=== PATIENT | female | born 1990 | race Caucasian/White ===

== ENCOUNTER 2017-11-24 17:37 | Emergency (ER) | payer MEDICAID, OTHER ==
[~2017-11-24] VITALS: Ht 165.1 cm; Wt 52.6 kg
[~2017-11-24 17:37] MED LIST: NAPR550T PO; NITR100C3 PO; ORPH100T PO; PHEN100T26 PO
--- OUTSIDE RECORDS SUMMARY | 2017-11-24 18:02 | XMS REPORT | Continuity of Care Document ---
Author Author [facility] Organization [facility] Address Unknown Phone Unavailable Allergies There is no data. Medications There is no data. Problems There is no data. Procedures There is no data. Results There is no data. Encounters ACCT No. Visit Date/Time Discharge Status Pt. Type Provider Facility Loc./Unit Complaint [id number] 08/02/2013 19:48:00 08/02/2013 20:47:00 [facility] Emergency [id number] 02/26/2013 09:44:00 02/26/2013 12:43:00 [facility] Emergency
[2017-11-24] MEDS ORDERED: OSLT75C PO (18:34)
[2017-11-24 18:38] VITALS: BP 111/71
--- NOTE | 2017-11-24 18:39 | ED Cough/URI ---
General Chief Complaint: Cough/Cold/Flu Symptoms Stated Complaint: FLU SYMPTOMS Nursing Triage Note: Pt c/o cough and headache since Friday (11/22). Pt also reports chills and body aches. Source: patient Exam Limitations: no limitations History of Present Illness Date Seen by Provider: Nov 24, 2017 Time Seen by Provider: 18:38 Initial Comments nonproductive cough, headache, fevers, chills, body aches x2 days. Timing/Duration: yesterday, getting worse Severity/Quality: dry cough Associated Symptoms: cough, fever/chills Allergies and Home Medications Allergies Coded Allergies: No Known Allergies (Unverified Allergy, Mild, 10/18/09) Home Medications Nitrofurantoin/Nitrofuran Mac 100 Mg Capsule, 100 MG PO BID for 5 Days Prescribed by: MANISH WINCHESTER on 08/02/132034 Oseltamivir Phosphate 75 Mg Cap, 75 MG PO BID, #10 Prescribed by: MANISH WINCHESTER on 11/24/17 1834 Phenazopyridine Hcl 100 Mg Tablet, 1 TAB PO TID for 2 Days Prescribed by: MANISH WINCHESTER on 08/02/132034 Constitutional: see HPI, chills EENTM: see HPI Respiratory: see HPI, cough Cardiovascular: no symptoms reported Genitourinary: no symptoms reported Musculoskeletal: no symptoms reported Skin: no symptoms reported Psychiatric/Neurological: No Symptoms Reported Past Itodifj-Lggfot-Jljhya Hx Patient Social History Recent Foreign Travel: No Contact w/Someone Who Travel: No Recent Infectious Disease Expo: No Reproductive System Hx Reproductive Disorders: No Sexually Transmitted Disease: No Physical Exam Vital Signs Vital Sign - Last 12Hours 11/24/17 17:43 Temp 99.8 Pulse 109 Resp 18 B/P (MAP) 111/71 (84) Pulse Ox 98 O2 Delivery Room Air Capillary Refill : Less Than 3 Seconds General Appearance: WD/WN, no apparent distress Eyes: Bilateral Eye Normal Inspection, Bilateral Eye PERRL, Bilateral Eye EOMI HEENT: PERRL/EOMI, normal ENT inspection Neck: non-tender, full range of motion Respiratory: normal breath sounds, no respiratory distress, no accessory muscle use Cardiovascular: regular rate, rhythm, no murmur Gastrointestinal: normal bowel sounds, non tender, soft Neurologic/Psychiatric: alert, normal mood/affect, oriented x 3 Skin: normal color, warm/dry Progress/Results/Core Measures Suspected Sepsis Recent Fever Within 48 Hours: Yes Infection Criteria Present: Suspected New Infection New/Unexplained Altered Menta: No Sepsis Screen: Possible Sepsis Risk Sepsis Diagnosis: SIRS Temperature:99.8 Pulse: 109 Respiratory Rate: 18 Blood Pressure 111 /71 Mean: 84 Results/Orders Vital Signs/I&O Vital Sign - Last 12Hours 11/24/17 17:43 Temp 99.8 Pulse 109 Resp 18 B/P (MAP) 111/71 (84) Pulse Ox 98 O2 Delivery Room Air Capillary Refill : Less Than 3 Seconds Blood Pressure Mean: 84 Departure Impression Impression: Primary Impression: Influenza Disposition: 01 HOME, SELF-CARE Condition: Stable Departure-Patient Inst. Decision time for Depature: 18:39 Patient Instructions: Flu Scripts Oseltamivir Phosphate (Tamiflu) 75 Mg Cap 75 MG PO BID, #10 CAP Prov: MANISH WINCHESTER APRN 11/24/17 Work/School Note: Work Release Form Date Seen in the Emergency Department: Nov 24, 2017 Return to Work: Nov 28, 2017 MANISH WINCHESTER APRN Nov 24, 2017 18:39
== END 2017-11-24 18:38 | disposition home or self-care (01) ==
LOC: EDUNIT# 17:37 → ER 17:39
DX: J11.1 Influenza due to unidentified influenza virus with other respiratory manifestations (principal)
CPT/HCPCS: 99282